=== PATIENT | female | born 1995 | race African-American/Black ===

== ENCOUNTER 2018-03-12 02:51 | Emergency (ER) | payer MEDICAID, OTHER ==
[~2018-03-12] VITALS: Ht 160 cm; Wt 52.2 kg
[2018-03-12] MEDS ORDERED: Norco 5mg/325mg tab ORAL ONE (03:15)
--- NOTE | 2018-03-12 03:23 | Emergency Room Report ---
History of Present Illness General Chief Complaint: Pain Source: Patient Present Illness HPI Is a 23-year-old female who is left-hand dominant. She presents with left forearm/wrist pain. Onset was acute. Occurred 45 minutes prior to arrival. She was opening her garage gait and it close on her cause her harm to be twisted. Pain is 9 out of 10. Worse with movement. Better with rest. No other injury. Did not take anything for this. No deformity. Allergies: Coded Allergies: AMOXICILLIN (Verified Allergy, Mild, 03/12/18) Patient History Past Medical History: see triage record, old chart reviewed Past Surgical History: none Pertinent Family History: none Social History: Denies: smoking Last Menstrual Period: 2 weeks ago Now: No Immunizations: other Reviewed Nursing Documentation: PMH: Agreed; PSxH: Agreed Nursing Documentation-PMH Past Medical History: No Stated History Review of Systems Eye: Denies: eye pain, blurred vision ENT: Denies: ear pain, nose congestion, throat swelling Respiratory: Denies: cough, shortness of breath Cardiovascular: Denies: chest pain, palpitations Gastrointestinal: Denies: abdominal pain, diarrhea, nausea, vomiting Musculoskeletal: Reports: joint pain, muscle pain; Denies: back pain Skin: Denies: rash Neurological: Denies: headache, numbness Endocrine: Denies: increased thirst, increased urine Hematologic/Lymphatic: Denies: easy bruising All Other Systems: negative except mentioned in HPI Physical Exam Vital Signs Date Time Temp Pulse Resp B/P (MAP) Pulse Ox O2 Delivery O2 Flow Rate FiO2 03/12/18 02:56 97.9 76 16 119/70 99 Room Air vitals normal Sp02 EP Interpretation: reviewed, normal General Appearance: well appearing, no apparent distress, alert Head: normocephalic, atraumatic Eyes: bilateral eye PERRL, bilateral eye EOMI ENT: hearing grossly normal, normal pharynx Neck: full range of motion, supple, no meningismus Respiratory: chest non-tender, lungs clear, normal breath sounds Cardiovascular #1: regular rate, rhythm, no murmur Gastrointestinal: normal bowel sounds, non tender, no mass, no organomegaly, no bruit, non-distended Musculoskeletal: back normal, gait/station normal, normal range of motion, other - Right forearm: Tenderness to the distal forearm just above the wrist. No deformity. Pulses normal. Psychiatric: mood/affect normal Skin: warm/dry Procedures Splinting Splinting : Consent: Verbal Location: left forearm Splint: volar Pre-Proc Neuro Vasc Exam: normal Post-Proc Neuro Vasc Exam: normal Patient Tolerated: Well Complications: None Medical Decision Making Diagnostic Impression: Primary Impression: Distal radius fracture, left Qualified Codes: S52.592A - Other fractures of lower end of left radius, initial encounter for closed fracture ER Course Patient presents with a fracture of the distal radius. No dislocation. We'll discharge home. Other X-Ray Diagnostic Results Other X-Ray Diagnostic Results : X-Ray ordered: left forearm x-rays # of Views/Limited Vs Complete: 2 View Indication: Pain EP Interpretation: Yes Interpretation: no dislocation, no soft tissue swelling, other - distal radius frx Impression: Other - distal radius frx Electronically Signed by: Yeison Almazan MD Last Vital Signs Date Time Temp Pulse Resp B/P (MAP) Pulse Ox O2 Delivery O2 Flow Rate FiO2 03/12/18 02:56 97.9 76 16 119/70 99 Room Air Status: improved Disposition: HOME, SELF-CARE Condition: Stable Scripts Ibuprofen* (MOTRIN*) 600 Mg Tablet 600 MG ORAL THREE TIMES A DAY, #30 TAB 0 Refills Prov: Yeison Almazan MD 03/12/18 Hydrocodone/Acetaminophen 5-325* (HYDROCODONE/ACETAMINOPHEN 5-325*) 1 Each Tablet 1 TAB ORAL Q6H PRN for For Pain, #30 TAB 0 Refills Prov: Yeison Almazan MD 03/12/18 Additional Instructions: Elevate arm. Ice pack area. No lifting or twisting motion. Follow-up with your doctor within a week. You will need a referral to see an orthopedic doctor. Return if symptom worsen. Yeison Almazan MD Mar 12, 2018 03:23
[2018-03-12] MEDS ORDERED: IBUPROFEN600 MG ORAL (03:44)
[2018-03-12] MEDS ORDERED: HYDROCODON-ACE1 EA15 ORAL (03:44)
[2018-03-12 03:50] VITALS: BP 119/70
== END 2018-03-12 03:57 | disposition home or self-care (01) ==
LOC: EMR 03:17
DX: S52.592A Other fractures of lower end of left radius, initial encounter for closed fracture (principal); X50.1XXA Overexertion from prolonged static or awkward postures, initial encounter; Y92.89 Other specified places as the place of occurrence of the external cause; Z88.1 Allergy status to other antibiotic agents
CPT/HCPCS: 29125; 99283